=== PATIENT | male | born 1965 | race Caucasian/White ===

== ENCOUNTER 2016-06-29 14:20 | Emergency (ER) | payer OTHER ==
--- NOTE | 2016-06-29 14:52 | UCPHY ---
H & P Patient Type: Established Chief Complaint Nursing Narrative: here 2 wks ago with DX of viral URI - states for last 2 wks cont. cough with some Lt sided CP rad strat to back - is concerned he is not getting better Time Seen by Provider: 06/29/16 14:48 HPI/ROS: HPI: 51-year-old male presents to urgent care with chief concern chest congestion, left-sided pleuritic chest discomfort that radiates into his back. Was evaluated on May 12 and diagnosed with upper respiratory infection. Reports ongoing productive cough, chest congestion, chills, temp 99.6. Reports 3 days of sharp 7/10 left-sided chest tightness that is worse with cough and deep breath. Denies dizziness, headache, dysphagia, shortness of breath, abdominal pain, nausea, vomiting, diarrhea, rash. No personal or family history of coagulopathy. No recent long car or plane travel. No calf pain or swelling. No personal or family history of coronary artery disease. 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 No acute distress. Head: Normalocephalic. Atraumatic. EENT: PERRLA. EOMI. No pallor or injection. Anicteric. No nystagmus. No injection. TMs intact bilaterally with normal landmarks. Minimal nasal congestion, mildly erythematous turbinates. Oropharynx without redness, exudates, or lesions. Tonsils 2+ bilaterally, no exudates. Neck: Supple, nontender. No lymphadenopathy. Full range of motion. No meningismus. Respiratory: Breathing unlabored. Breath sounds equal bilaterally and clear to auscultation. No adventitious sounds. CV: Chest nontender, atraumatic. Heart rate regular. No murmur, distal pulses 2+ bilaterally. Brisk cap refill all extremities. GI: Abdomen soft, nontender. Bowel sounds normoactive and positive x4 quadrants. : No CVA or flank tenderness. Neuro: Alert. Oriented x 3. Speech clear. Nonfocal cranial nerves throughout. Sensation intact all extremities. Skin: Skin warm, dry, intact. Skin turgor normal. Extremities: Full range of motion in all 4 extremities. Strength 5+ all extremities. Constitutional: Initial Vital Signs Temperature (C) 36.6 C 06/29/16 14:30 Heart Rate 88 06/29/16 14:30 Respiratory Rate 18 06/29/16 14:30 Blood Pressure 124/90 H 06/29/16 14:30 O2 Sat (%) 97 06/29/16 14:30 O2 Delivery Mode Room Air Allergies/Adverse Reactions: No Known Allergies Allergy (Verified 05/12/16 17:12) Home Medications: Medication Instructions Recorded Azithromycin [Zithromax 250 mg 250 mg PO DAILY #6 tab 06/29/16 tab(RX)] Medical Decision Making - Diagnostics Imaging: CT negative for evidence of pulmonary embolism. Incidental finding in includes a 2 mm pulmonary nodule. This has been discussed with the patient. He verbalizes understanding of these findings and agrees to follow up with his primary care provider. He has been handed a copy of his CT on disc. ED Course/Re-evaluation: 51-year-old male presents to urgent care with ongoing cough, chest congestion, left anterior chest pain that is pleuritic in nature. Chest pain onset 3 days ago, 12/20. Afebrile. Reports temp 99.6 associated with chills at home. White count 6510. CBC unremarkable. Chemistry unremarkable. Troponin negative. Negative influenza. D-dimer 0.82. CT angio chest pending. EKG shows a sinus rhythm 82, normal intervals, no axis deviation, no evidence of ischemia. Reviewed by myself. CT negative for pulmonary embolism. Patient counseled regarding all findings and encouraged to follow up with primary care later this week for recheck. He agrees to do so. Differential Diagnosis: Differential includes but is not limited to bronchitis, pneumonia, reactive airway disease, influenza, pulmonary embolism, ACS - Data Points Laboratory Results: Laboratory Results 06/29/16 14:45 06/29/16 14:45 06/29/16 06/29/16 15:05 14:45 WBC 6.51 10^3/uL (3.80-9.50) RBC 4.53 10^6/uL (4.40-6.38) Hgb 15.1 g/dL (13.7-17.5) Hct 42.3 % (40.0-51.0) MCV 93.4 fL (81.5-99.8) MCH 33.3 pg (27.9-34.1) MCHC 35.7 g/dL (32.4-36.7) RDW 12.6 % (11.5-15.2) Plt Count 243 10^3/uL (150-400) MPV 9.6 fL (8.7-11.7) Neut % (Auto) 64.7 % (39.3-74.2) Lymph % (Auto) 26.4 % (15.0-45.0) [place] % (Auto) 5.8 % (4.5-13.0) Eos % (Auto) 2.3 % (0.6-7.6) Baso % (Auto) 0.5 % (0.3-1.7) Nucleat RBC Rel Count 0.0 % (0.0-0.2) Absolute Neuts (auto) 4.21 10^3/uL (1.70-6.50) Absolute Lymphs (auto) 1.72 10^3/uL (1.00-3.00) Absolute Monos (auto) 0.38 10^3/uL (0.30-0.80) Absolute Eos (auto) 0.15 10^3/uL (0.03-0.40) Absolute Basos (auto) 0.03 10^3/uL (0.02-0.10) Absolute Nucleated RBC 0.00 10^3/uL (0-0.01) Immature Gran % 0.3 % (0.0-1.1) Immature Gran # 0.02 10^3/uL (0.00-0.10) D-Dimer 0.82 H ug/mLFEU (0.00-0.50) Sodium 139 mEq/L (134-144) Potassium 4.2 mEq/L (3.5-5.2) Chloride 101 mEq/L (97-110) Carbon Dioxide 26 mEq/l (22-31) Anion Gap 12 mEq/L (8-16) BUN 20 mg/dL (7-23) Creatinine 1.1 mg/dL (0.7-1.3) Estimated GFR > 60 Glucose 98 mg/dL (70-100) Calcium 9.7 mg/dL (8.5-10.4) Troponin I < 0.012 ng/mL (0-0.034) Influenza Typ A,B (DFA) NEGATIVE FOR FLU (NEGATIVE) Departure - Departure Disposition: Home, Routine, Self-Care Clinical Impression: Bronchitis, Pulmonary nodule Condition: Good Instructions: Acute Bronchitis (ED) Additional Instructions: Plan: Zithromax antibiotic as prescribed You may use Mucinex/guaifenesin over the counter to help expectorate mucus with your cough. Follow up with primary care at [facility] next week for recheck, take your CT and informed the primary care provider of the finding of the 2 mm pulmonary nodule that will need repeat imaging with in 6-12 months Return here for recheck or go to emergency department for worsening symptoms despite treatment plan Referrals: IN STATE,. [Primary Care Provider] - As per Instructions Prescriptions: Azithromycin [Zithromax 250 mg tab(RX)] 250 mg PO DAILY #6 tab - PQRS PQRS Measurement: Not applicable
--- NOTE | 2016-06-29 14:53 | CPEKG ---
Heart Rate: 82 RR Interval: 732 P-R Interval: 172 QRSD Interval: 90 QT Interval: 360 QTC Interval: 421 P [place]: 44 QRS [place]: 76 T Wave [place]: 8 EKG Severity - NORMAL ECG - EKG Impression: SINUS RHYTHM Electronically Signed By: Donovan Mcclelland 29-Jun-2016 21:16:53
[2016-06-29 15:00] LABS: % IMMATURE GRANULYOCYTES 0.3 % (0.0-1.1); ABSOLUTE IMMATURE GRANULOCYTES 0.02 10^3/uL (0.00-0.10); ADD DIFF? NO; ADD MORPH? NO; ADD SCAN? NO; ATYPICAL LYMPHOCYTE FLAG 0 (0-99); FRAGMENT RBC FLAG 0 (0-99); HEMATOCRIT 42.3 % (40.0-51.0); HEMOGLOBIN 15.1 g/dL (13.7-17.5); LEFT SHIFT FLG 0 (0-99); LIPEMIA HEMOLYSIS FLAG 90 (0-99); MEAN CELL HEMOGLOBIN 33.3 pg (27.9-34.1); MEAN CELL HEMOGLOBIN CONCENTR. 35.7 g/dL (32.4-36.7); MEAN CELL VOLUME 93.4 fL (81.5-99.8); MEAN PLATELET VOLUME 9.6 fL (8.7-11.7); PLATELET CLUMPS FLAG 10 (0-99); PLATELET COUNT 243 10^3/uL (150-400); RED BLOOD CELL COUNT 4.53 10^6/uL (4.40-6.38); RED CELL DISTRIBUTION WIDTH 12.6 % (11.5-15.2)
[2016-06-29 15:22] LABS: ANION GAP 12 mEq/L (8-16); CALCIUM 9.7 mg/dL (8.5-10.4); CARBON DIOXIDE 26 mEq/l (22-31); CHLORIDE 101 mEq/L (97-110); CREATININE 1.1 mg/dL (0.7-1.3); GLOMERULAR FILTRATION RATE > 60; GLUCOSE 98 mg/dL (70-100); POTASSIUM 4.2 mEq/L (3.5-5.2); SODIUM 139 mEq/L (134-144)
[2016-06-29] MEDS ORDERED: IOPAMIDOL (ISOVUE-370) 150 ML BTL IV ONE (15:29)
[2016-06-29 15:30] LABS: TROPONIN I < 0.012 ng/mL (0-0.034)
[2016-06-29 16:16] VITALS: BP 116/66; PULSE 80; RESP 16; TEMP 98.6; O2SAT 94
--- NOTE | 2016-06-29 17:02 | CT ---
CT chest pulmonary angiogram. CLINICAL INDICATION: Cough and chest pain. TECHNIQUE: 1.25 mm contiguous helical axial scanning of the uneventful administration of 90 mL of Iso [id number]. Routine reconstructions of coronal and sagittal planes. Dose reduction technique was perform ed. FINDINGS: The pulmonary vasculature is unremarkable. A 2 mm pulmonary nodule in the right middle lobe is indeterminate seen on series 3 image 122. Aortic vasculature is unremarkable. Lungs are clear. He art size is normal. Bones are unremarkable. Limited examination of the upper abdomen is unremarkable. Impression 2 mm pulmonary nodule right middle lobe. Per Fleischner criteria follow-up is not required if the patient is at low risk for lung cancer. If the patient is at high risk for lung cancer single follow-up at 12 months is recommended. Critical results relayed by Dr. Bartolo Wilkins to KLAUDIA Freedman June 29, 2016 1608 hours.
== END 2016-06-29 16:25 | disposition home or self-care (01) ==
LOC: CED 14:20
DX: R91.1 Solitary pulmonary nodule (principal); J20.9 Acute bronchitis, unspecified
CPT/HCPCS: 71275-PO; 80048-PO; 84484-PO; 85025-PO; 85378-PO; 87400-PO; 93010-PO; 99215-PO; G0463-PO; Q9967